=== PATIENT | male | born 2000 | race Caucasian/White ===

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

== ENCOUNTER 2022-05-28 11:53 | Emergency (ER) | payer OTHER ==
[2022-05-28] MEDS ORDERED: Ketorolac 30 MG/ML SDV IM ONE (12:24)
[2022-05-28] MEDS ORDERED: Diphtheria,Pertussis(Acell),Tetanus Vaccine 0.5 ML Syringe IM ONE (12:25)
[2022-05-28] MEDS ORDERED: Bacitracin Oint 1 GM U/D Packet TOP ONE (12:25)
[2022-05-28] MEDS ORDERED: Lidocaine 1% 5 ML VIAL INJECT ONE (12:35)
== END 2022-05-28 14:10 | disposition home or self-care (01) ==
LOC: JP.ED 11:53
DX: S61.306A Unspecified open wound of right little finger with damage to nail, initial encounter (principal); Z91.010 Allergy to peanuts; Z23 Encounter for immunization; W26.8XXA Contact with other sharp object(s), not elsewhere classified, initial encounter
CPT/HCPCS: 64450; 73140; 90471; 90715; 96372; 99283; J1885; 99284

== ENCOUNTER 2022-11-16 10:51 | Emergency (ER) | payer OTHER | END 2022-11-16 12:25 | disposition home or self-care (01) | LOC: JP.ED 10:51 | DX: J45.21 Mild intermittent asthma with (acute) exacerbation (principal); Z91.010 Allergy to peanuts; Z79.899 Other long term (current) drug therapy | CPT/HCPCS: 99284 ==